=== PATIENT | female | born 1990 | race Caucasian/White ===

== ENCOUNTER 2019-01-04 07:52 | Inpatient (IN) | payer BC, MEDICAID ==
[2019-01-04] MEDS ORDERED: Buffered Lidocaine 1% SYRIN* 1 ML/SYRINGE INTRADERM ONE (08:43)
[2019-01-04] MEDS ORDERED: Dinoprostone* 10 MG VAG.SUPP VAGINAL ONE (08:43)
[2019-01-04] MEDS ORDERED: Lactated Ringers 1000 ML Bag* 1,000 ML IV ONE (08:43)
[2019-01-04] MEDS ORDERED: Lactated Ringers 1000 ML Bag* 1,000 ML IV SCH (09:00)
--- NOTE | 2019-01-04 09:29 | HP ---
General Information - Reason for Visit 28yo, , IUP@39 weeks, here for ripening/IOL for IUGR - General Information Maternal Age: 28 Grav: 2 Para: 0 SAB: 1 IEA: 0 Determined By: Early Ultrasound Gestational Age in Weeks/Days: 39 Maternal Blood Type and Rh: A Positive - Results this Serology/RPR Result: Non-Reactive Rubella Result: Immune HBsAg Result: Negative HIV Result: Negative GBS Culture Result: Negative Past Medical History Pertinent Past Medical History: Non-Contributory Pertinent Past Surgical History: None Pertinent Family History: Non-Contributory Family History Comment: Mother: pancreatitis PGM: brain cancer - Antepartal Records Antepartal Records: Reviewed, Complicated by: - IUGR (5lbs, 3oz@37+3) , S/D ratio 2.6; tobacco use; THC use Review of Systems Constitutional: Comfortable CV Complaint: No Respiratory: Shortness of Breath: No Gastrointestinal: No Nausea/Vomiting, Normal Bowel Movement Genitourinary: No Dysuria, No Bleeding, No Leaking Fluid Musculoskeletal: No Complaint, No Epigastric Pain Neurological: No Headache, No Visual Changes Movement: Normal Exam Allergies/Adverse Reactions: Allergies No Known Allergies Allergy (Verified 01/04/19 08:39) temp 98.6, HR 97, RR 18, BP 119/79, 100% - Measurements Height: 5 ft 5 in Weight: 160 lb Weight in lbs: 160.059910 Body Mass Index (BMI): 26.6 Pre- Weight: 115 lb Weight Gained This : 45 lbs and 0 ozs - Exam Breast: Breast Exam Deferred CVA: No CVA Tenderness Extremities: No Edema Heart: Normal Rhythm/Heart Sounds HEENT: No Significant Findings Lungs: Clear Bilaterally Rectal: Rectal Exam Deferred Reflexes: DTR 2+ Targeted Exam Findings Estimated Weight: 5lbs 3oz at 37+3 Cervical Exam: 1cm Effacement: <50% Station: -1 Presenting Part: Vertex Membrane Status: Intact EFM Findings - External Monitor Findings Baseline Heart Rate: 135 External Monitor Findings: Accelerations Present, No Pattern of Variable or Late Decelerations, Variability Moderate External Monitor Findings Comment: No evidence of metabolic acidemia Contractions: Irregular, Mild, < 45 Seconds Assessment/Plan - Assessment 28yo, , IUP@39+0 GBS negative, A+ Ripening/IOL for suspected IUGR Tobacco use, hx of THC use VSS No evidence of metabolic acidemia Irregular contractions - Obstetrical Risk Factors Obstetrical Risk Factors: Substance Abuse - Hx of THC use , Tobacco Use, IUGR - Plan Plan: Induction, Cervical Ripening, Admit - Anticipate Vaginal Delivery Plan Comment: Admit to L&D PARQ discussion about cervical ripening. Given VE, plan to start with cervidil. Pt in agreement with plan. VE prn Epidural when in active labor Anticipate progression to active labor - Date/Time of Admission Date of Admission: 01/04/19 Time of Admission: 08:00
[2019-01-04] MEDS ORDERED: Famotidine TAB* 20 MG PO PRN (10:02)
--- NOTE | 2019-01-04 10:31 | PN ---
Progress Note - Progress Note Date of Service: 01/04/19 Note: Cervidil placed without complication Pt tolerated well Monitoring per protocol
[2019-01-04 12:18] LABS: Urine Benzodiazepine Screen None Detected (None Detect); Urine Opiates Screen None Detected (None Detect)
--- NOTE | 2019-01-04 19:02 | PN ---
Progress Note - Progress Note Date of Service: 01/04/19 Note: S: Pt doing well. Having some lower abdominal cramping/menstrual-like cramps. Otherwise doing well. O: 118/72, afebrile VE: deferred Intermittent auscultation: 145 Occasional contraction Cervidil in place A: Pt tolerating cervical ripening well. Not in active labor. VSS P: Remove cervidil at 2220, or as indicated Anticipate cervical change Revisit ripening vs. IOL options after removal of cervidil
[2019-01-04 22:55] LABS: ABS Basophils 0.1 10^3/ul (0-0.2); ABS Eosinophils 0.1 10^3/ul (0-0.6); ABS Lymphocytes 2.4 10^3/ul (1.0-4.8); ABS Monocytes 0.8 10^3/ul (0-0.8); ABS Neutrophils 10.6 10^3/ul (1.5-7.7); Eosinophil % 0.9 %; Hematocrit 35 % (35-47); Hemoglobin 11.8 g/dL (12.0-16.0); Lymphocyte % 16.9 %; Mean Corpuscular HGB Conc 34 g/dL (31-36); Mean Corpuscular Hemoglobin 29 pg (27-31); Mean Corpuscular Volume 86 fL (80-97); Mean Platelet Volume 10.6 fL (7.4-10.4); Nucleated Red Blood Cells % 0.1; Platelet Count 205 10^3/uL (150-450); Red Blood Count 4.06 10^6 /uL (3.70-4.87); Red Cell Distribution Width 14 % (10-15)
--- NOTE | 2019-01-04 23:18 | PN ---
Progress Note - Progress Note Date of Service: 01/04/19 Note: Cervidil pulled by RN, while I pushed with another patient 10 minutes after cervidil removed, called to bedside for prolonged decel FHR fully recovered with pt in left lateral, IV fluids infusing, and O2 applied Pt tearful and anxious. VE: 1.5/30/-2, soft PARQ discussion about moving forward with ripening. Discussed option for cook catheter. Given decel hesitant to administer misoprostol. Pt is tired and is declining to continue with ripening this PM. Plan for pain medication and resume ripening/IOL in the AM. Anticipate progression to active labor
[2019-01-05] MEDS ORDERED: Sodium Citrate/Citric Acid* 15 ML UDC ONE (00:27)
[2019-01-05] MEDS ORDERED: ceFOXitin 2 GM IVPREMIX* 2 GM/50 ML BAG ONE (00:27)
--- NOTE | 2019-01-05 00:35 | PN ---
Progress Note - Progress Note Date of Service: 01/05/19 - Labor progress note Note: Patient is 28 year old at 39 weeks with IUGR here for induction of labor. Patient has had category 2 tracing with severe variable decelerations remote from delivery. Patient was given IV bolus of fluids and positioned left lateral. She is having contractions every 3 to 6 minutes but is not in active labor with cervical exam 1cm and 50%. We discussed the delivery option by primary section with the benefits, alternatives and risks of of the surgery including infection, anesthesia, bleeding, blood transfusion, injury to internal organs, nerves or the baby. Patient consents to the surgery for delivery of her baby and declines further attempts for induction of labor. Mahnaz Faye MD
[2019-01-05] MEDS ORDERED: OXYTOCIN* 10 UNITS/ML 1 ML VIAL ONE (00:40)
[2019-01-05] MEDS ORDERED: Phenylephrine 40 MCG/ML SYRINGE ONE (00:40)
[2019-01-05] MEDS ORDERED: Morphine PF AMP (0.5MG/ML)* 5 MG/10 ML AMP ONE (00:41)
[2019-01-05] MEDS ORDERED: Ondansetron INJ* 2 MG/ML VIAL IV PRN ×2 (00:49→01:26)
[2019-01-05] MEDS ORDERED: Naloxone* 0.4 MG/ML 1 ML VIAL IV PRN ×2 (00:49→01:26)
[2019-01-05] MEDS ORDERED: fentaNYL* 50 MCG/ML 2 ML VIAL (100 MCG VIAL) IV PRN (00:49)
[2019-01-05] MEDS ORDERED: Sodium Citrate/Citric Acid* 15 ML UDC PO ONE (00:51)
[2019-01-05] MEDS ORDERED: Lactated Ringers 1000 ML Bag* 1,000 ML IV SCH ×2 (01:00→03:00)
[2019-01-05] MEDS ORDERED: Ondansetron INJ* 2 MG/ML VIAL ONE (01:23)
[2019-01-05] MEDS ORDERED: diPHENhydraMINE IV* 50 MG/ML 1 ml VIAL (BENADRYL) IV PRN (01:26)
[2019-01-05] MEDS ORDERED: oxyCODONE/Acetamin 5/325 MG* TAB PO PRN ×3 (01:26→21:18)
[2019-01-05] MEDS ORDERED: Nalbuphine* 10 MG/ML 1 ML VIAL IV PRN (01:26)
[2019-01-05] MEDS ORDERED: DiMENhydriNATE IV* 50 MG/ML VIAL ONE (01:39)
[2019-01-05] MEDS ORDERED: Metoclopramide IV* 5 MG/ML 2 ML VIAL ONE (01:41)
[2019-01-05] MEDS ORDERED: Scopolamine 1.5 mg* PATCH ONE (01:45)
--- NOTE | 2019-01-05 01:58 | PN ---
Progress Note - Progress Note Date of Service: 01/05/19 Note: Following second prolonged decel, Dr. Faye was consulted for intolerance to labor remote from delivery. Neyda to bedside. PARQ discussion about operative vs risks of continuing to labor vaginally. Recommendation of Dr. Faye to proceed with operative . Pt and mother enthusiastically agree with MD recommendation. Anesthesia, NICU, and medical assistant secretary (KEG) notified.
[2019-01-05] MEDS ORDERED: Zolpidem TAB* 5 MG PO PRN (02:38)
[2019-01-05] MEDS ORDERED: Witch Hazel PAD* JAR TOPICAL PRN (02:38)
[2019-01-05] MEDS ORDERED: Oxytocin in LR* 20 UNITS/1,000 ML BAG IVPB SCH (03:00)
[2019-01-05] MEDS: Ketorolac INJ* 30 MG/ML 1 ML VIAL IV PRN ×4 (03:17→21:49)
[2019-01-05] MEDS: Docusate CAP* 100 MG PO SCH ×3 (09:31→21:50)
--- NOTE | 2019-01-05 11:07 | OP ---
AMENDED REPORT NOW INCLUDES DATE OF OPERATION - ESIGNED BEFORE ADJUSTMENT * DATE OF OPERATION: 01/05/19 - ROOM #101 DATE OF : 89 SURGEON: Mahnaz Faye MD SINGLE STAYER OPERATOR: Adriana Moody MD ANESTHESIA: Spinal. PRE-OP DIAGNOSES: Thirty nine-week intrauterine gestation with intrauterine growth restriction, nonreassuring monitoring during induction of labor. POST-OP DIAGNOSES: Thirty nine-week intrauterine gestation with intrauterine growth restriction, nonreassuring monitoring during induction of labor. OPERATIVE PROCEDURE: Primary low transverse uterine incision with a 2-layer uterine closure. COMPLICATIONS: None. ESTIMATED BLOOD LOSS: 600 cc. TOTAL FLUIDS: 1900 mL crystalloid. DRAINS: Sanches with the urine output of 1000 cc. FINDINGS: Delivery of a live female from cephalic presentation with Apgars of 8 and 9 and weight of 5 pounds 9 ounces. Normal uterus, fallopian tubes and ovaries bilaterally. Clear amniotic fluid. INDICATIONS: The patient is a 28-year-old G1, who presented at 39 weeks' gestation for induction of labor for IUGR. During the induction, she developed variable decels and her maximum dilatation was 1 cm and decision was made to proceed with primary low transverse section for that indication. DESCRIPTION OF PROCEDURE: The patient was taken to the operating room where spinal anesthesia was administered. She was then prepped and draped in the normal sterile fashion in the dorsal supine position with a leftward tilt. A time-out was performed confirming the patient and her birthday and the procedure. A Pfannenstiel skin incision was then made with the scalpel and carried through the underlying layer of the fascia with Bovie. The fascia was incised in the midline and the incision was extended laterally with a Austin scissors. The superior aspect of the fascial incision was then grasped with the Deanne clamps, elevated and the underlying rectus muscles were dissected off bluntly. Attention was then turned to the inferior aspect of this incision , which in the similar fashion was grasped, tented up with Deanne clamps and the rectus muscle was dissected off bluntly. The rectus muscles were then in the midline and the peritoneum was identified, tented up and entered sharply with Metzenbaum scissors and the peritoneal incision was extended bluntly with good visualization of the bladder. The bladder blade was then inserted and the vesicoperitoneum was identified, grasped with the pickups and entered sharply with Metzenbaum scissors. The incision was then extended laterally and the bladder flap was created digitally. The bladder blade was then reinserted and the lower uterine segment incised in the transverse fashion with a scalpel. The uterine incision was then extended laterally with the bandage scissors. The bladder blade was removed and the 's head was delivered atraumatically. The nose and mouth were suctioned and the cord was clamped and cut. The was handed off to the waiting administrative assistant receptionist and cord gases were sent. The placenta was then delivered with massage and the uterus was exteriorized and cleared of all clots and debris. The uterine incision was then repaired with an 0-Vicryl in a running locked fashion and the second layer of the same suture was used to obtain excellent hemostasis. The bladder flap was hemostated with Bovie cautery in the areas that required hemostasis. The gutters were cleared of all clots and the peritoneum was closed with 3-0 Vicryl. The fascia was reapproximated with 0-Vicryl in a running fashion meeting in the midline and the subcutaneous tissue was closed with 3-0 chromic interrupted sutures and the skin was closed with a 4-0 subcuticular closure and Steri-Strips. The patient tolerated the procedure well. Sponge, lap, and needle counts were correct x2. 2 g of cefoxitin was given prior to the skin incision. The patient was taken to the recovery room in stable condition. [id number]/[facility] #: [id number] MTDD
[2019-01-05] MEDS ORDERED: Acetaminophen TAB* 325 MG PO PRN (17:00)
[2019-01-05] MEDS: Simethicone TAB* 80 MG TAB.CHEW PO SCH (22:04)
[2019-01-05] MEDS: oxyCODONE/Acetamin 5/325 MG* TAB PO PRN (22:05)
[2019-01-06] MEDS: oxyCODONE/Acetamin 5/325 MG* TAB PO PRN ×5 (03:03→20:47)
[2019-01-06] MEDS: Ibuprofen TAB* 600 MG PO PRN ×4 (04:59→23:34)
[2019-01-06 06:51] LABS: ABS Eosinophils 0.1 10^3/ul (0-0.6); ABS Lymphocytes 1.6 10^3/ul (1.0-4.8); ABS Monocytes 0.6 10^3/ul (0-0.8); ABS Neutrophils 6.6 10^3/ul (1.5-7.7); Eosinophil % 1.3 %; Hematocrit 29 % (35-47); Hemoglobin 9.9 g/dL (12.0-16.0); Lymphocyte % 17.8 %; Mean Corpuscular HGB Conc 35 g/dL (31-36); Mean Corpuscular Hemoglobin 30 pg (27-31); Mean Corpuscular Volume 87 fL (80-97); Mean Platelet Volume 9.9 fL (7.4-10.4); Platelet Count 157 10^3/uL (150-450); Red Blood Count 3.33 10^6 /uL (3.70-4.87); Red Cell Distribution Width 15 % (10-15); White Blood Count 8.9 10^3/uL (3.5-10.8)
[2019-01-06] MEDS: Ferrous Gluconate TAB* 324 MG TAB PO SCH ×2 (08:14→20:05)
[2019-01-06] MEDS: Simethicone TAB* 80 MG TAB.CHEW PO SCH ×4 (08:15→20:06)
[2019-01-06] MEDS: Docusate CAP* 100 MG PO SCH ×3 (08:15→20:05)
--- NOTE | 2019-01-06 11:08 | PN ---
Progress Note - Progress Note Date of Service: 01/06/19 - POD#1 s/p PLTCS Note: Patient is POD#1 s/p PLTCS for delivery of live female infant. Patient is passing flatus and tolerating regular diet. She is voiding urine without difficulty. Her pain is controlled with oral pain medications. Her vaginal bleeding has slowed. She is breast feeding and supplementing with formula. Objective: Vital Signs Temp 97.9 F 01/06/19 08:20 Pulse 74 01/06/19 08:20 Resp 18 01/06/19 08:26 BP 118/65 01/06/19 08:20 Pulse Ox 98 01/05/19 07:35 Intake & Output 01/05/19 01/06/19 01/06/19 18:59 06:59 18:59 Output Total 2200 400 Balance -2200 -400 Output: Urine 400 Sanches 2200 abdomen: bowel sounds present, incision is dry and intact, dressing was removed , fundus firm, nontender extremities nontender, no edema lochia scant Laboratory Results - last 24 hr 01/06/19 06:40 WBC 8.9 RBC 3.33 L Hgb 9.9 L Hct 29 L MCV 87 MCH 30 MCHC 35 RDW 15 Plt Count 157 MPV 9.9 Neut % (Auto) 73.3 Lymph % (Auto) 17.8 Mckenzie % (Auto) 7.1 Eos % (Auto) 1.3 Baso % (Auto) 0.5 Absolute Neuts (auto) 6.6 Absolute Lymphs (auto) 1.6 Absolute Monos (auto) 0.6 Absolute Eos (auto) 0.1 Absolute Basos (auto) 0.0 Absolute Nucleated RBC 0.0 Nucleated RBC % 0.0 Assessment: POD #1 s/p PLTCS doing well with bowel function returning. Mild postoperative blood loss anemia Plan: continue supportive care, patient may shower, advance diet as tolerated, iron supplementation for blood loss anemia. Mahnaz Faye MD
[2019-01-07] MEDS: Ibuprofen TAB* 600 MG PO PRN ×3 (05:50→17:53)
[2019-01-07] MEDS: oxyCODONE/Acetamin 5/325 MG* TAB PO PRN ×4 (05:51→19:57)
[2019-01-07] MEDS: Ferrous Gluconate TAB* 324 MG TAB PO SCH ×2 (08:49→19:57)
[2019-01-07] MEDS: Simethicone TAB* 80 MG TAB.CHEW PO SCH ×4 (08:49→19:57)
[2019-01-07] MEDS: Docusate CAP* 100 MG PO SCH ×3 (08:49→19:57)
[2019-01-08] MEDS: Ibuprofen TAB* 600 MG PO PRN ×2 (00:10→08:34)
[2019-01-08] MEDS: oxyCODONE/Acetamin 5/325 MG* TAB PO PRN ×2 (02:25→08:35)
[2019-01-08] MEDS: Docusate CAP* 100 MG PO SCH (08:34)
[2019-01-08] MEDS: Simethicone TAB* 80 MG TAB.CHEW PO SCH (08:34)
[2019-01-08] MEDS: Ferrous Gluconate TAB* 324 MG TAB PO SCH (08:34)
[2019-01-08 08:40] VITALS: BP 141/82
== END 2019-01-08 10:47 | disposition home or self-care (01) | DRG 540 ==
LOC: MCHOBOUT 07:52 → MCHOB 09:08
PROVIDERS: ADMIT Advanced Practice Midwife; ATTEND Specialist
PROC: 3E033VJ Introduction of Other Hormone into Peripheral Vein, Percutaneous Approach (ICD-10-PCS; 2019-01-05)
PROC: 10D00Z1 Extraction of Products of Conception, Low, Open Approach (ICD-10-PCS; principal; 2019-01-05 00:53)
DX: O76 Abnormality in fetal heart rate and rhythm complicating labor and delivery (principal); O36.5930 Maternal care for other known or suspected poor fetal growth, third trimester, not applicable or unspecified; O99.334 Smoking (tobacco) complicating childbirth; F17.210 Nicotine dependence, cigarettes, uncomplicated; O61.0 Failed medical induction of labor; O90.81 Anemia of the puerperium; D64.89 Other specified anemias; Z3A.39 39 weeks gestation of pregnancy; Z37.0 Single live birth
CPT/HCPCS: 36415; 59200; 80307; 85025; 86850; 86900; 86901; A9270-GY; J0694; J1240; J1885; J2300; J2405; J2590; J2765

== ENCOUNTER 2024-05-10 05:43 | Inpatient (IN) ==
[2024-05-10] MEDS ORDERED: Buffered Lidocaine 1% SYRIN 1 ml INTRADERM ONE (05:51)
[2024-05-10] MEDS ORDERED: ceFOXitin 2 GM IVPREMIX 2 GM/50 ML BAG IVPB ONE (05:51)
[2024-05-10] MEDS ORDERED: Lactated Ringers 1000 ml BAG 1,000 ML IV ONE (05:51)
[2024-05-10] MEDS ORDERED: Lactated Ringers 1000 ml BAG 1,000 ML IV SCH ×2 (06:00→11:00)
[2024-05-10] MEDS ORDERED: Morphine PF AMP (0.5MG/ML) 5 MG/10 ML AMP ONE (07:37)
[2024-05-10] MEDS ORDERED: Phenylephrine IV 10 MG/ML 1 ml VIAL ONE (07:42)
[2024-05-10] MEDS ORDERED: Oxytocin 10 UNITS/ML 1 ML VIAL ONE ×2 (07:42→10:36)
[2024-05-10] MEDS ORDERED: Ondansetron 4 mg VIAL 2 MG/ML 2 ml VIAL ONE (07:42)
[2024-05-10] MEDS ORDERED: Ondansetron 4 mg VIAL 2 MG/ML 2 ml VIAL IV PRN (08:43)
[2024-05-10] MEDS ORDERED: Acetaminophen IV 1 GM/100ML 1,000 MG/100 ML BAG IV PRN (08:43)
[2024-05-10] MEDS ORDERED: Metoclopramide 5 MG/ML VIAL (10 mg) IV PRN (08:43)
[2024-05-10] MEDS ORDERED: Naloxone 0.4 mg VIAL 0.4 mg/ml 1 ml VIAL IV PUSH PRN (08:43)
[2024-05-10] MEDS: Sodium Citrate/Citric Acid LIQ 15 ML UDC PO ONE (08:55)
[2024-05-10 09:24] LABS: ABS Basophils 0.1 10^3/uL (0.0-0.1); ABS Eosinophils 0.2 10^3/uL (0.0-0.5); ABS Lymphocytes 2.3 10^3/uL (1.0-4.8); ABS Monocytes 0.6 10^3/uL (0.0-0.9); ABS Neutrophils 8.4 10^3/uL (1.5-7.6); Eosinophil % 1.3 %; Hemoglobin 10.8 g/dL (11.5-14.3); Mean Corpuscular Hemoglobin 25.2 pg (27-33); Mean Corpuscular Hgb Conc 32.6 g/dL (31-36); Mean Corpuscular Volume 77.4 fL (80-97); Mean Platelet Volume 9.1 fL (7.5-11.2); Platelet Count 293 10^3/uL (150-450); Red Blood Count 4.27 10^6/uL (3.63-4.92); Red Cell Distribution Width 16.6 % (12-17); White Blood Count 11.6 10^3/uL (3.8-11.8)
[2024-05-10] MEDS ORDERED: Acetaminophen IV 1 GM/100ML 1,000 MG/100 ML BAG IV ONE (09:50)
[2024-05-10] MEDS ORDERED: Metoclopramide 5 MG/ML VIAL (10 mg) ONE (10:36)
[2024-05-10] MEDS ORDERED: Dexamethasone IV 4 MG/ML VIAL 1 ml VIAL ONE (10:36)
[2024-05-10] MEDS ORDERED: Glycerin ADULT 2.4 gm SUPP PR PRN (10:47)
[2024-05-10] MEDS ORDERED: Dibucaine 1% OINT 28.35 GM TUBE PR PRN (10:47)
[2024-05-10] MEDS ORDERED: Witch Hazel PAD JAR TOPICAL PRN (10:47)
[2024-05-10] MEDS ORDERED: Oxytocin in LR 20,000 MILLI.UNIT/1,000 ML BAG IV SCH (10:50)
[2024-05-10 12:36] LABS: Urine Appearance Extra Turbid; Urine Bilirubin Negative (Negative); Urine Blood Negative (Negative); Urine Color Yellow; Urine Glucose Negative (Negative); Urine Ketones Negative (Negative); Urine Nitrite Negative (Negative); Urine Protein 1+ (>=30 mg/dL) (Negative); Urine Specific Gravity 1.026 (1.002-1.030); Urine Urobilinogen Negative (Negative); Urine pH 6.5 (5.0-8.0)
[2024-05-10 12:59] LABS: Urine Bacteria Absent /HPF (Absent); Urine Red Blood Cell 1+(3-5/hpf) /HPF (0-Trace); Urine Squamous Epithelial Cell Present /HPF (Absent); Urine White Blood Cell 1+(6-10/hpf) /HPF (0-Trace)
[2024-05-10 13:26] LABS: Urine Benzodiazepine Screen None Detected (None Detect); Urine Cannabinoids Screen None Detected (None Detect); Urine Opiates Screen None Detected (None Detect)
[2024-05-10] MEDS: ceFOXitin 2 GM IVPREMIX 2 GM/50 ML BAG IVPB ONE (17:44)
[2024-05-11 07:09] LABS: ABS Basophils 0.1 10^3/uL (0.0-0.1); ABS Eosinophils 0.1 10^3/uL (0.0-0.5); ABS Monocytes 0.9 10^3/uL (0.0-0.9); ABS Neutrophils 9.4 10^3/uL (1.5-7.6); Eosinophil % 0.6 %; Hematocrit 27.9 % (35-45); Hemoglobin 9.2 g/dL (11.5-14.3); Lymphocyte % 22.7 %; Mean Corpuscular Hemoglobin 25.5 pg (27-33); Mean Corpuscular Hgb Conc 33.1 g/dL (31-36); Mean Platelet Volume 9.7 fL (7.5-11.2); Platelet Count 164 10^3/uL (150-450); Red Blood Count 3.63 10^6/uL (3.63-4.92); Red Cell Distribution Width 16.5 % (12-17); White Blood Count 13.4 10^3/uL (3.8-11.8)
[2024-05-12 07:45] VITALS: BP 110/63
== END 2024-05-12 13:11 | disposition home or self-care (01) | DRG 540 ==
LOC: MCHOB 05:43
PROVIDERS: ADMIT Obstetrics & Gynecology; ATTEND Obstetrics & Gynecology